=== PATIENT | female | born 1965 | race Caucasian/White ===

== ENCOUNTER 2025-06-22 20:05 | Emergency (ER) | payer MEDICARE, OTHER ==
[~2025-06-22] VITALS: Ht 157.5 cm; Wt 107.8 kg
--- NOTE | ~2025-06-22 | EKG ---
[facility] [address] [facility] [place], [place] [address] Draft EKG completed, results pending confirmation PATIENT NAME: MIAHGINETTE K Electrocardiogram DATE OF : 61 PHYSICIAN: PRELIMINARY REPORT #: [id number] REPORT IS CONFIDENTIAL AND NOT TO BE RELEASED WITHOUT AUTHORIZATION
--- NOTE | ~2025-06-22 | EKG ---
[facility] [address] [facility], [place] [address] Draft EKG completed, results pending confirmation PATIENT NAME: MIAHGINETTE K Electrocardiogram DATE OF : 61 PHYSICIAN: PRELIMINARY REPORT #: [id number] REPORT IS CONFIDENTIAL AND NOT TO BE RELEASED WITHOUT AUTHORIZATION
[2025-06-22] MEDS ORDERED: BUPROPION HCL75 MG PO (20:20)
[2025-06-22] MEDS ORDERED: ESCITALOPRAM OX20 MG PO (20:20)
[2025-06-22] MEDS ORDERED: MELATONIN1 MG PO (20:21)
[2025-06-22] MEDS ORDERED: VITAMIN D350 MC3 PO (20:21)
[2025-06-22] MEDS ORDERED: CLOTRIMAZOLE-BE15 GM TOP (20:22)
[2025-06-22] MEDS ORDERED: NITROGLYCERIN 0.4 MG SUBL SL PRN (20:30)
[2025-06-22 20:37] LABS: BASOPHILS 0.3 % (0.1-1.2); EOSINOPHILS 2.8 % (0.7-5.8); LYMPHOCYTES 43.1 % (19.3-51.7); MCH 29.8 PG (25.6-32.2); MCHC 32.8 g/dL (32.2-35.5); MCV 90.9 fL (79.4-94.8); MONOCYTES 7.8 % (4.7-12.5); NEUTROPHILS 45.9 % (34.0-71.1); RBC 4.50 M/uL (3.93-5.22)
[2025-06-22 20:59] LABS: ALT (SGPT) 33.0 U/L (14-59); AST (SGOT) 21.0 U/L (15-37); GLOMERULAR FILTRATION RATE,EST 50.0 mL/min (>60); PROTEIN, TOTAL 6.6 g/dL (6.4-8.2); UREA NITROGEN 16.0 mg/dL (7-18)
[2025-06-22] MEDS ORDERED: FAMOTIDINE 20 MG/ 2 ML VIAL IV ONE (21:00)
[2025-06-22] MEDS ORDERED: PEPCID20 MG PO (23:34)
[2025-06-23 00:06] VITALS: BP 97/67
== END 2025-06-22 23:50 | disposition home or self-care (01) ==
LOC: ED 20:05
PROVIDERS: Internal Medicine
DX: R07.9 Chest pain, unspecified (principal)
CPT/HCPCS: 36415; 71045; 80053; 83735; 84484; 85025; 93005; 93010; 96374; 99285-25